=== PATIENT | male | born 1945 ===

== ENCOUNTER 2023-12-17 10:48 | Outpatient (CLI) | payer MEDICARE, BC, SELFPAY ==
[2023-12-17 10:53] LABS: Abs Immature Grans 0.01 10^3/uL (0.0-0.06); Absolute Basophil Count 0.01 10^3/uL (0.0-0.2); Absolute Eosinophil Count 0.06 10^3/uL (0.0-0.7); Absolute Lymphocyte Count 0.37 10^3/uL (1.2-3.4); Absolute Monocyte Count 0.54 10^3/uL (0.1-0.8); Absolute Neutrophil Count 1.67 10^3/uL (1.2-6.7); Basophils % 0.4; Eosinophils % 2.3; HCT 36.6 % (40.0-50.0); HGB 12.4 g/dL (13.5-17.5); Immature Grans % 0.4; Lymphocytes % 13.9; MCHC 33.9 % (32.0-36.0); MCV 94 fL (80-95); MPV 8.3 fL (8.0-11.0); Monocytes % 20.3; Neutrophils % 62.7; Platelet Count 203 10^3/uL (130-400); RBC 3.88 10^6/uL (4.36-5.78); RDW 13.5 % (11.8-14.1); RDW-SD 46.7 fL; WBC 2.66 10^3/uL (4.4-10.8)
[2023-12-17 11:28] LABS: ALT 33 U/L (16-63); AST 23 U/L (15-37); Albumin 3.6 g/dL (3.4-5.0); Alkaline Phosphatase 82 U/L (46-116); Anion Gap 6.8 mmol/L (3-11); BUN 13 mg/dL (7-18); Bilirubin, Total 0.4 mg/dL (0.2-1.0); CO2 31.2 mmol/L (21.0-32.0); CREATININE 1.1 mg/dL (0.70-1.30); Calcium 9.4 mg/dL (8.5-10.1); Chloride 103 mmol/L (98-107); Estimated GFR 69.14 (mL/min/1.73m2); Glucose 106 mg/dL (74-106); LDH 111 U/L (85-227); Potassium 4.3 mmol/L (3.5-5.1); Sodium 141 mmol/L (136-145); Total Protein 6.6 g/dL (6.4-8.2)
[2023-12-18 10:13] LABS: IgA 49 mg/dL (85-499); IgG 299 mg/dL (610-1616); IgM <12 mg/dL (35-242)
== END 2023-12-17 10:49 | disposition home or self-care (01) ==
LOC: LBO 12-23 10:48
PROVIDERS: Visit Provider Nurse Practitioner Adult Health
DX: C91.10 Chronic lymphocytic leukemia of B-cell type not having achieved remission (principal); D80.1 Nonfamilial hypogammaglobulinemia
CPT/HCPCS: 36415; 80053; 82784; 83615; 85025